=== PATIENT | male | born 1945 | race Caucasian/White ===

== ENCOUNTER → 2016-09-03 09:17 | Outpatient (CLI) | payer OTHER ==
[2016-09-03 10:24] LABS: APPEARANCE CLEAR (CLEAR); BILIRUBIN NEGATIVE (NEGATIVE); COLOR YELLOW (YELLOW); GLUCOSE NEGATIVE (NEGATIVE); KETONE NEGATIVE (NEGATIVE); LEUKOCYTE ESTERASE NEGATIVE (NEGATIVE); NITRITE NEGATIVE (NEGATIVE); PROTEIN NEGATIVE (NEGATIVE); SPECIFIC GRAVITY 1.015 (1.005-1.020); UROBILINOGEN NORMAL (NORMAL)
[2016-09-03 10:37] LABS: ALBUMIN 3.3 g/dL (3.4-5.0); ANION GAP 12.7 mmol/L (8-16); BILIRUBIN - TOTAL 0.32 mg/dL (0.2-1.3); CALCIUM 9.6 mg/dL (8.5-10.1); CARBON DIOXIDE 26.9 mmol/L (21.0-32.0); CREATININE - SERUM 1.8 mg/dL (0.6-1.3); POTASSIUM - SERUM 4.6 mmol/L (3.5-5.1); PROTEIN - SERUM 7.6 g/dL (6.4-8.2)
== END | disposition home or self-care (01) ==
LOC: D.LAB 09:00
PROVIDERS: Physical Medicine & Rehabilitation
DX: E11.9 Type 2 diabetes mellitus without complications (principal)

== ENCOUNTER 2016-09-10 09:47 | Day surgery (SDC) | payer MEDICARE, OTHER ==
[~2016-09-10] VITALS: Ht 175.3 cm; Wt 80.5 kg
--- NOTE | ~2016-09-10 | OP ---
PATIENT NAME: CARLIE TRIVEDI MEDICAL RECORD: [id number] :43 LOCATION:[facility] ADMISSION DATE: SURGEON: LANEY MCARTHUR DO DATE OF OPERATION: 09/10/2016 PROCEDURE: EGD with biopsies. INDICATIONS: Abnormal findings on CT scan with abnormal uptake suspected in the fundus of the stomach. SCOPE: NeuroNascent video gastroscope. MEDICATIONS: Propofol 230 mg IV per anesthesia. ESTIMATED BLOOD LOSS: Less than 3 mL. FINDINGS: Informed consent was given. The patient was made comfortable with the above medication. After reaching an adequate level of sedation by slow IV push, the patient was placed on his left side. The endoscope was then advanced under direct visualization through the mouth down to the fourth portion of the duodenum. In the proximal esophagus, there were two separate patches of heterotopic gastric mucosa. The middle esophagus appeared normal. In the distal esophagus, near the GE junction, there was evidence of LA class A reflux induced esophagitis as well as a mild Schatzki ring, which was not obstructing. No dilation was performed as the patient has not been complaining of any trouble swallowing. Scope was advanced beyond the GE junction into the stomach and retroflexed to view the cardia and fundus. There was a small sliding type hiatal hernia present. The fundus was examined carefully as this was the area of focus with abnormal uptake suspected on a PET CT scan. There were no abnormalities visualized on the mucosal surface of the fundus. The body of the stomach appeared normal. In the antrum and prepyloric region, there were multiple superficial ulcerations and erosions. There were a few linear gastric ulcers, which showed no bleeding stigmata. The erosions looked consistent with an NSAID effect. The patient does take aspirin. Random biopsies were taken to rule out H. pylori and to submit for histology. A separate single biopsy was taken of a gastric ulcer. The endoscope was advanced beyond the pylorus into the duodenum where the bulb revealed some duodenitis, showing some granularity and erythema. There were no specific ulcerations visualized. The second portion, third portion and fourth portion of the duodenum appeared normal. The endoscope was withdrawn from the patient. The patient tolerated the procedure well and there were no complications. IMPRESSION: 1. 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 2. A nonobstructing, mild, Schatzki ring present at the GE junction, reflux esophagitis grade A. 3. Small sliding hiatal hernia. 4. Linear superficial gastric ulcers without bleeding stigmata. 5. Multiple erosions of the stomach consistent with an NSAID use. 6. Gastritis, which was biopsied. 7. Duodenitis, which was biopsied. PLAN AND RECOMMENDATIONS: 1. Discharge home when recovery parameters are met. 2. Continue current diet. OPERATIVE REPORT [id number] CARLIE TRIVEDI 3. Continue current medications. 4. Start Protonix 40 mg daily in the a.m. times 8 weeks. 5. Repeat EGD as needed if dysphagia presents as he does have a Schatzki ring that could be dilated. 6. Proceed with colonoscopy as scheduled within a couple of weeks. 7. Follow up with oncologist as scheduled. TRANSINT:[id number] Voice Confirmation ID: [id number] DOCUMENT ID: [id number] LANEY MCARTHUR DO CC: [id number] DICTATION DATE: 09/10/16 1235 [employer] ENGINEER: 09/10/162035 [facility] 09/10/16 [id number] [place] [address]
[2016-09-10] MEDS ORDERED: OMEGA-3100 MG PO (10:15)
[2016-09-10] MEDS ORDERED: ZOCOR20 MG PO (10:15)
[2016-09-10] MEDS ORDERED: BAYER CHEWABLE81 MG PO (10:15)
[2016-09-10] MEDS ORDERED: LOPRESSOR25 MG PO (10:16)
[2016-09-10] MEDS ORDERED: CARDURA2 MG PO (10:17)
[2016-09-10] MEDS ORDERED: MULTI-DAY VITAM1 TAB PO (10:17)
[2016-09-10 10:31] VITALS: BP 129/65; Ht 175.3 cm; Wt 80.5 kg
[2016-09-10 10:40] LABS: BASOPHILS 1.1 % (0-2); EOSINOPHILS 2.2 % (0-7); HEMOGLOBIN 13.2 g/dL (13.5-17.5); IMMATURE GRANULOCYTES 0.3 % (0-5); LYMPHOCYTES 42.7 % (15-50); MCH 31.1 pg (26.0-34.0); MCV 94.1 fL (80.0-100.0); MEAN PLATELET VOLUME 9.6 fL (7.4-10.4); MONOCYTES 13.3 % (2-11); NEUTROPHILS 40.4 % (40-80); PLATELET COUNT 322 10x3/uL (130-400); RBC 4.25 10x6/uL (4.20-6.10); RDW 14.4 % (11.5-14.5); WBC 7.2 10x3/uL (4.8-10.8)
[2016-09-10 10:50] LABS: ANION GAP 15.3 mmol/L (8-16); CALCIUM 9.5 mg/dL (8.5-10.1); CARBON DIOXIDE 24.2 mmol/L (21.0-32.0); CREATININE - SERUM 1.8 mg/dL (0.6-1.3); POTASSIUM - SERUM 4.5 mmol/L (3.5-5.1)
--- NOTE | 2016-09-10 13:06 | NUR ---
1250- PT SITTING UP WITH HOB ELEVATED. AT BEDSIDE. DR. MCARTHUR AT BEDSIDE DISCUSSING PROCEDURAL FINDINGS. VSS. FULL LIQUIDS OFFERED. WILL MONITOR.
--- NOTE | 2016-09-10 13:51 | NUR ---
FULL LIQUIDS TOLERATED. 1320- IV D/C'D, PT TOLERATED. CATHETER INTACT 1335- DISCHARGE INSTRUCTIONS COMPLETED. PT VERBALIZED UNDERSTANDING. PAPERWORK SIGNED. 1340- PT DISCHARGED VIA WHEELCHAIR WITH .
== END 2016-09-10 13:40 | disposition home or self-care (01) ==
LOC: D.OPS 09:47
PROVIDERS: Anesthesiology
DX: K22.2 Esophageal obstruction (principal); K44.9 Diaphragmatic hernia without obstruction or gangrene; K21.0 Gastro-esophageal reflux disease with esophagitis; K25.9 Gastric ulcer, unspecified as acute or chronic, without hemorrhage or perforation; K29.70 Gastritis, unspecified, without bleeding; K29.80 Duodenitis without bleeding; Z01.812 Encounter for preprocedural laboratory examination

== ENCOUNTER 2016-09-24 09:57 | Day surgery (SDC) | payer MEDICARE, OTHER ==
[~2016-09-24] VITALS: Ht 175.3 cm; Wt 79.8 kg
--- NOTE | ~2016-09-24 | OP ---
PATIENT NAME: CARLIE TRIVEDI MEDICAL RECORD: [id number] :43 LOCATION:[facility] ADMISSION DATE: SURGEON: LANEY MCARTHUR DO DATE OF OPERATION: 09/24/2016 PROCEDURE: Colonoscopy with hot forceps polypectomy and cold forceps polypectomy. INDICATIONS FOR PROCEDURE: Abnormal findings on CT, family history positive for colon cancer in his father, and history of colon polyps. SCOPE: Olympus video pediatric colonoscope. MEDICATIONS: Propofol 340 mg IV per anesthesia. WITHDRAWAL TIME: 15 minutes. ESTIMATED BLOOD LOSS: Minimal. COMPLICATIONS: None. FINDINGS: Informed consent was given. The patient was made comfortable with the above medication. After reaching an adequate level of sedation by slow IV push, the patient was placed on his left side. Digital rectal examination was performed and was normal. The endoscope was then advanced under direct visualization through the anus to the cecum, evidenced by the appendiceal orifice and ileocecal valve. The scope was slowly withdrawn and mucosa was carefully examined. The prep was good on the left side of the colon and fair on the right side. In the ascending colon, there were 3 polyps ranging in size from 2 mm to 6 mm. They were all removed with hot forceps in 1 piece and completely retrieved. There was one other polyp that was located in the rectum. It was a benign-appearing sessile polyp measuring approximately 3 mm in size. It was removed with cold forceps in 1 piece and completely retrieved. In the sigmoid colon, there were multiple small mouth diverticula of moderate to severe in severity. There was some associated thickening of the segment of the colon related to the diverticula, which did not appear out of the normal range. In the rectum, there were some changes consistent with past radiation treatment for prostate cancer. Retroflexion was performed in the rectum with a normal-appearing rectal wall. The endoscope was then withdrawn from the patient. The patient tolerated the procedure well and there were no complications. IMPRESSION: 1. Four polyps as described above. Three in the ascending colon were removed with hot forceps and one in the rectum was removed with cold forceps. 2. Moderate to severe severity sigmoid diverticulitis with some associated thickening. 3. Changes in the rectum consistent with treatment for prostate cancer. PLAN AND RECOMMENDATIONS: 1. Discharge home when recovery parameters are met. 2. Continue current diet. 3. Continue current medications. 4. Follow up biopsy specimen results. 5. Recall colonoscopy in 3 years. OPERATIVE REPORT [id number] CARLIE TRIVEDI TRANSINT:[id number] Voice Confirmation ID: [id number] DOCUMENT ID: [id number] LANEY MCARTHUR DO CC: [id number] DICTATION DATE: 09/24/16 150 [employer] FORM[employer] ENGINEER: 09/24/16 2311 [facility] 09/24/16 [facility] [address] [place] [address]
[~2016-09-24 09:57] MED LIST: BAYER CHEWABLE81 MG PO; CARDURA2 MG PO; LOPRESSOR25 MG PO; MULTI-DAY VITAM1 TAB PO; OMEGA-3100 MG PO; ZOCOR20 MG PO
[2016-09-24 11:15] VITALS: BP 135/77; Ht 175.3 cm; Wt 79.8 kg
[2016-09-24 12:32] LABS: BASOPHILS 1.1 % (0-2); EOSINOPHILS 1.9 % (0-7); HEMATOCRIT 38.6 % (42.0-54.0); HEMOGLOBIN 12.7 g/dL (13.5-17.5); IMMATURE GRANULOCYTES 0.1 % (0-5); LYMPHOCYTES 38.6 % (15-50); MCH 30.8 pg (26.0-34.0); MCHC 32.9 g/dL (31.0-37.0); MCV 93.7 fL (80.0-100.0); MEAN PLATELET VOLUME 10.1 fL (7.4-10.4); NEUTROPHILS 46.3 % (40-80); PLATELET COUNT 335 10x3/uL (130-400); RBC 4.12 10x6/uL (4.20-6.10); RDW 13.8 % (11.5-14.5); WBC 7.4 10x3/uL (4.8-10.8)
[2016-09-24 12:41] LABS: ANION GAP 12.4 mmol/L (8-16); CALCIUM 8.9 mg/dL (8.5-10.1); CARBON DIOXIDE 24.8 mmol/L (21.0-32.0); CREATININE - SERUM 1.6 mg/dL (0.6-1.3); POTASSIUM - SERUM 4.2 mmol/L (3.5-5.1)
--- NOTE | 2016-09-24 15:21 | NUR ---
1510-RECD TO ROOM FROM GI LAB. DR MCARTHUR ROUNDS AND REPORTS TO PATIENT AND FAMILY. 1515-FULL LIQUIDS SERVED.
== END 2016-09-24 16:00 | disposition home or self-care (01) ==
LOC: D.OPS 09:57
PROVIDERS: Anesthesiology
DX: D12.2 Benign neoplasm of ascending colon (principal); K62.1 Rectal polyp; K57.32 Diverticulitis of large intestine without perforation or abscess without bleeding; Z80.0 Family history of malignant neoplasm of digestive organs; Z85.46 Personal history of malignant neoplasm of prostate